=== PATIENT | female | born 1965 | race American Indian/Alaskan Native ===

== ENCOUNTER 2023-03-08 01:49 | Emergency (ER) | payer BC, OTHER ==
[~2023-03-08] VITALS: Ht 160 cm; Wt 78.6 kg
[2023-03-08 02:45] VITALS: BP 147/74; PULSE 81; RESP 18; O2SAT 96
[2023-03-08] MEDS ORDERED: TETRACAINE HCL 0.5% OPTH(EYE) SOLN 4ML RIGHTEYE ONE (04:45)
[2023-03-08] MEDS ORDERED: GENT0.3S10 LEFTEYE ×3 (05:13→05:30)
[2023-03-08] MEDS ORDERED: HYDROcodone-ACET 5/325MG TAB PO ONE (05:15)
[2023-03-08] MEDS ORDERED: TETANUS-DIPTH-ACEL PERTUSSIS 0.5ML SYR Tdap IM ONE (05:15)
[2023-03-08] MEDS ORDERED: ERYTHROMY OPTH OINT 5mg/gm 1gm or 3.5gm tube OP ONE (05:15)
== END 2023-03-08 05:40 | disposition home or self-care (01) ==
LOC: ER 01:49
DX: T15.12XA Foreign body in conjunctival sac, left eye, initial encounter (principal); X58.XXXA Exposure to other specified factors, initial encounter; Y93.89 Activity, other specified; Y92.098 Other place in other non-institutional residence as the place of occurrence of the external cause; Y99.8 Other external cause status
CPT/HCPCS: 90471; 90715